=== PATIENT | male | born 1960 | race Caucasian/White ===

== ENCOUNTER → 2016-07-26 | Outpatient (CLI) | payer OTHER ==
--- NOTE | 2016-07-27 08:30 | KCIC ---
PROCEDURE MRI lumbar spine without contrast. HISTORY Low back pain, bilateral hip pain for 10+ years TECHNIQUE Sagittal and axial T1 and T2 and sagittal STIR images were acquired of the lumbar spine. Contrast: None COMPARISON None FINDINGS Lumbar vertebral body stature is preserved. There is advanced degenerative disc disease at L3-4 and L4-5 and to a lesser degree at L2-3 and L5-S1. There is amorphous edema of the L3-4 and L4-5 endplates likely reactive/degenerative in etiology. AP alignment is adequate. Conus terminates normally at L1. There is mild edema of the left L5 pedicle posteriorly probably reactive/degenerative in etiology. L2-3: There is minimal disc osteophyte complex and bulge. Spinal canal is adequate. There is very minimal narrowing of the anterior, inferior left neural foramina, right neural foramen adequate. L3-4: There is broad posterior disc osteophyte complex with superimposed broad bulge/protrusion. There is mild indentation upon the ventral thecal sac. While near, there is no significant displacement of the descending L3 nerve roots. There is apparently a tiny extrusion extending below the intervertebral disc space in the far right lateral recess, mild narrowing of the far right lateral recess. There is mild buckling of the ligamentum flavum. There is mild right and mild to moderate left neural foramina compromise. Disc osteophyte complex is near the proximal extraforaminal left L3 nerve root although no significant displacement. L4-L5: There is disc osteophyte complex with superimposed broad posterior bulge/protrusion. There is mild left lateral recess stenosis. There is mild buckling of the ligamentum flavum and facet degenerative change. There is moderate to severe left greater than right neural foramina compromise. L5-S1: Spinal canal is adequate. There is negligible disc osteophyte complex such as in the anterior left neural foramen. There is mild narrowing of the left neural foramen, right neural foramen adequate. There is mild facet hypertrophic change greater on the left. IMPRESSION 1. There is advanced degenerative disc disease L3-4 and L4-5, to lesser degree at L2-3 and L5-S1. Amorphous L3-4 and L4-5 endplate edema is likely reactive/degenerative in etiology. 2. There is no significant lumbar spinal stenosis, mild narrowing of the far right lateral recess at L3-4 part by shallow extrusion extending below the intervertebral disc space in the far right lateral recess, mild left lateral recess stenosis at L4-5. 3. There is moderate to severe left greater than right L4-5 neural foramina compromise, lesser degree of narrowing on the left at L3-4. Electronically signed by: Abad Peter MD (Jul 27, 2016 08:29:38)
== END | disposition home or self-care (01) ==
LOC: KCIC MRI 17:40
PROVIDERS: ATTEND Family Medicine
DX: M54.9 Dorsalgia, unspecified (principal)
CPT/HCPCS: 72148

== ENCOUNTER → 2017-02-06 | Outpatient (CLI) | payer OTHER ==
[~2017-02-06] MED LIST: ARIP2TAB3 PO; CITA10TA4 PO; IBUP-1007 PO; LAMO200T PO; MULT1TAB52 PO; OMEG1CAP6 PO; QUET25TA5 PO; VENL150C PO
[2017-02-06 15:54] LABS: BASO % 1 % (0-3); EOS % 2 % (0-3); HEMATOCRIT 42.2 % (39.0-53.0); HEMOGLOBIN 14.3 g/dL (13.0-17.5); LYMPH % 32 % (24-48); MEAN CORPUSCULAR HEMOGLOBIN 28 pg (25-35); MEAN CORPUSCULAR HGB CONC 34 g/dL (31-37); MEAN CORPUSCULAR VOLUME 82 fL (79-100); MONO % 8 % (0-9); NEUT % 58 % (31-73); PLATELET COUNT 200 x10^3/uL (140-400); RED BLOOD COUNT 5.13 x10^6/uL (4.30-5.70); RED CELL DISTRIBUTION WIDTH 13.9 % (11.5-14.5); WHITE BLOOD COUNT 6.2 x10^3/uL (4.0-11.0)
[2017-02-06 16:20] LABS: ALBUMIN 4.1 g/dL (3.4-5.0); ALBUMIN/GLOBULIN RATIO 1.2 (1.0-1.7); CALCIUM 9.2 mg/dL (8.5-10.1); GFR 77.6; POTASSIUM 3.9 mmol/L (3.5-5.1); TOTAL BILIRUBIN 0.3 mg/dL (0.2-1.0); TOTAL PROTEIN 7.5 g/dL (6.4-8.2)
== END | disposition home or self-care (01) ==
LOC: SURGPAT 14:28
PROVIDERS: ATTEND Neurological Surgery
DX: M54.16 Radiculopathy, lumbar region (principal); M48.06 Spinal stenosis, lumbar region
CPT/HCPCS: 36415; 80053; 85025; 87641

== ENCOUNTER → 2017-02-16 | Day surgery (SDC) | payer OTHER ==
[~2017-02-16] VITALS: Ht 177.8 cm; Wt 88.5 kg
[~2017-02-16] MED LIST changes: +0.9 % SODIUM CHLORIDE 50 ML VIAL. IJ ONE; +BACITRACIN 50,000 UNIT in IV NORMAL SALINE 1000ML BAG 1,000 ML IRR ONE; +BUPIVACAINE-EPI 0.25%-1:200000 MPF 30 ML VIAL. ONE; +DESFLURANE > 120 MINUTES IH ONE; +DEXAMETHASONE SOD PHOS 20 MG/5 ML VIAL. ONE; +DOCU-109 PO; +GELATIN SPONGE SIZE 100. ONE; +GLYCOPYRROLATE 1 MG/5 ML VIAL. ONE; +HYDR-2762 PO; +HYDROcodone/APAP 7.5/325MG 1 TAB TABLET PO PRN; +HYDROmorphone 2 MG/ML VIAL IV PRN; +IV RINGERS,LACTATED 1000ML 1,000 ML IV SCH; +KETOROLAC 60 MG/2 ML INJ FOR OR. ONE; +LIDOCAINE 1% PF 2 ML VIAL. ID PRN; +LIDOCAINE 2% PF Vial for OR 5 ML VIAL. ONE; +METH-38 PO; +MIDAZOLAM HCL/PF 2 MG/2 ML VIAL. ONE; +MINERAL OIL/PETROLATUM,WHITE OPHTH OINT 3.5GM TUBE. ONE; +MORPHINE SULFATE 2 MG/ML DISP.SYRIN. IV PRN; +MORPHINE SULFATE 2 MG/ML DISP.SYRIN. ONE; +NEOSTIGMINE 10 MG/10 ML VIAL. ONE; +ONDANSETRON PF 4 MG/2 ML VIAL. ONE; +PHENYLEPHRINE 10 MG/ML VIAL. ONE; +PROCHLORPERAZINE 10 MG/2 ML VIAL. IV PRN; +PROPOFOL 20 ML IV ONE; +PROPOFOL 50 ML IV ONE; +REMIFENTANIL 2 MG VIAL. IV ONE; +ROCURONIUM 100 MG/10 ML VIAL. ONE; +SCOPOLAMINE 1.5MG PATCH. TD ONE; +THROMBIN TOPICAL 20,000 UNIT SPRAY.SYRN KIT TP ONE; +fentaNYL PF VIAL 100 MCG/2 ML VIAL IV PRN; +fentaNYL PF VIAL 100 MCG/2 ML VIAL ONE
--- NOTE | 2017-02-16 07:00 | PREOP HP ---
DATE OF SERVICE: ANTICIPATED DATE OF SURGERY: 02/16/2017. HISTORY OF PRESENT ILLNESS: The patient is a pleasant 56-year-old who is having difficulty with low back pain and pain that radiates to both of his hips and posterolateral thighs. The problem has been present for years and has slowly progressed. He says his pain increases to a 9 or 10/10 with activity. Changing positions or getting up from a seated position markedly increases his pain. He says once he is painful, it is difficult for him to get the pain under control. He takes ibuprofen and Tylenol. He had epidural steroid injections about 2 years ago, which did not significantly help him. PAST MEDICAL HISTORY: Headaches, depression and shingles. PAST SURGICAL HISTORY: Left shoulder surgery in 2001. MEDICATIONS: Ibuprofen, Tylenol, , and lamotrigine. FAMILY HISTORY: Cancer and spine problems. ALLERGIES: No known drug allergies. SOCIAL HISTORY: He is employed in [employer]. He quit smoking more than 5 years ago. He does not drink alcohol, but in the past, had a history of alcoholism. REVIEW OF SYSTEMS: A 12-point review of systems was performed and is noncontributory, except that mentioned above. PHYSICAL EXAMINATION: GENERAL: Alert, pleasant, in no acute distress. HEAD: Normocephalic, atraumatic. SKIN: Warm and dry. MUSCULOSKELETAL: Lumbar paraspinal muscle bulk is normal. Restricted range of motion of the lumbar spine. [id number] tenderness of the lower lumbar spine with palpation. Normal range of motion of the lower extremities bilaterally. EXTREMITIES: No clubbing, cyanosis or edema. NEUROLOGIC: Alert and oriented x 3. Strength is 5/5 in the lower extremities bilaterally. Sensory is intact to light touch in the lower extremities bilaterally. Reflexes are present and symmetric in the lower extremities. Negative straight leg raising bilaterally. Normal gait. IMAGING DATA: I reviewed imaging studies of the lumbar spine and at L4-L5, there is significant lateral recess and neural foraminal narrowing bilaterally. ASSESSMENT AND PLAN: At this point, I told him I was willing to operate at L4-L5 and perform bilateral microdecompression surgery to see if this would help him. I discussed with him the surgery including the risk and the expected postoperative course. He understands. He would like to go ahead. We are going to make the arrangements. ROSSY ROMAN MD DR: Al JOB#: [id number] / [id number]
--- NOTE | 2017-02-16 11:05 | DISCH ---
DISCHARGE INSTRUCTIONS Condition on Discharge Condition on Discharge: Stable Activity After Discharge Activity Instructions for Disc: Activity as tolerated, Avoid exertion Other activity instructions: no driving for a week Bathing Instructions: Shower-keep dressing dry Lifting Instructions after Dis: No heavy lifting Diet after Discharge Additional Diet Restrictions: resume home diet Wound Incision Care Wound/Incision Care: Ice to area for comfort Other wound/incision instructi: ,ay remove dressing in 48 hrs if dry, leave steri strips, no direct water Contacting the DRRose Marie after DC Call your doctor for: Concerns you may have Follow-Up Follow up with: Dr. Roman's nurse in 2 weeks [phone] ROSSY ROMAN MD Feb 16, 2017 11:05
--- NOTE | 2017-02-16 11:22 | OP ---
DATE OF SURGERY: 02/16/2017 PREOPERATIVE DIAGNOSIS: Lateral recess stenosis with lumbar radiculopathy, L4-L5 bilateral. POSTOPERATIVE DIAGNOSIS: Lateral recess stenosis with lumbar radiculopathy, L4-L5 bilateral. OPERATION PERFORMED: Bilateral hemilaminotomies with decompression of dura and nerve root, L4-L5. The operation was done with EMG monitoring, fluoroscopy, microscopic dissection. SURGEON: Giancarlo Roman M.D. DIRECTOR HOSPICE OPERATIONS: ROXANA Oliva, assisted with the surgery, assisted with exposure, the micro decompression as well as the closure. OPERATIVE INDICATIONS: The patient is a very pleasant 56-year-old who developed intractable back and bilateral leg pain in a radicular fashion. On imaging studies, he was found to have lateral recess stenosis, which was significant at L4-L5 bilaterally, and after failing conservative measures I recommended lumbar microsurgery. He understood the surgery very well and wished to go ahead. DESCRIPTION OF PROCEDURE: Following general endotracheal anesthesia, the patient was positioned prone on the Allan table. His lumbar region was prepped and draped in a standard fashion. SOMMER hose and A-V Impulse boots were applied for deep venous thrombosis prophylaxis. The microscope was draped. Fluoroscopy was draped and brought into the field. Monitoring was established. Ancef 2 grams was given less than 1 hour prior to initiation of surgery. Using fluoroscopic guidance, incision was made directly over the L4-L5 interspace. I reflected the paraspinal muscles on the left side, placed a [place] micro disc retractor, brought in the microscope and performed a generous hemilaminotomy and partial foraminotomy. The ligamentum flavum was very thickened and indenting into the nerve root and I gently retracted the root medially and then trimmed laterally and enlarged the foraminotomy. As I worked, the region became very well decompressed and the nerve root became very free. The disc was bulging, but extremely firm and I did not feel a discectomy was warranted. I did coagulate a few epidural veins. I then irrigated and obtained hemostasis in the muscle after removing the retractor and then I switched to the contralateral side. In a similar fashion I created an exposure, placed a [place] micro disc retractor, brought in the microscope and with microscopic technique I burred down a generous hemilaminotomy. Ligamentum flavum was again thickened with compression of the root at its takeoff into the neural foramen, and I removed all of this pressure very gently by first fraying up the ligamentum flavum from above and pulling it down and trimming this from medial to lateral with the 2.5 mm and 4 mm [place]. As I worked, the region became very well decompressed. Again, I palpated the disc, which again was bulging slightly, but very firm and I did not feel a discectomy was warranted. I did irrigate. I did coagulate a few epidural veins. I then explored carefully and assured myself that the region was very free. I irrigated copiously, obtained hemostasis in the muscle after removing the retractor, and then I closed the wound in layers with absorbable suture and skin was closed with a 4-0 subcuticular stitch. The surgery went very well and the patient was taken to recovery in excellent condition. I was quite pleased with the surgery. GIANCARLO ROMAN MD DR: LEEANNA/lilia JOB#: [id number] / [id number] ENRICO
[2017-02-16] MEDS: fentaNYL PF VIAL 100 MCG/2 ML VIAL IV PRN ×2 (11:33→11:42)
[2017-02-16 11:57] VITALS: BP 118/63
--- NOTE | 2017-02-17 14:50 | PATHOLOGY ---
PATHOLOGY REPORT * * * * * * * * FINAL DIAGNOSIS: Segments of fibrocartilaginous, fibroadipose, and skeletal muscle tissue and bone, lumbar decompression: - Degenerative changes of fibrocartilaginous tissue. COMMENT: There is no evidence of an acute inflammatory process or malignancy. (JPM:mgr; 02/17/2017) REPORT ELECTRONICALLY SIGNED BY: Arturo Hart M.D. DATE/TIME: 02/17/2017 14:49 * * * * * * * * GROSS PATHOLOGY: Received in formalin labeled "Pete Hodges, lumbar decompression" are multiple segments of [place], rubbery, and gritty tissue admixed with bone. The specimen measures 2.8 x 2.5 x 0.8 cm in aggregate dimensions. The tissue is submitted representatively in cassette A1, following decalcification. (JPM; 02/16/17) INITIAL CPT CODE(S): A; 53046, 68661 Professional services performed [place] [facility] [address] Technical services performed by [facility] at [address] [place] [address]. SPECIMEN(S) RECEIVED: A.Lumbar decompression CLINICAL HISTORY: Lumbar radiculopathy, stenosis PATIENT: PETE HODGES /AGE: 106/08/1960 (Age: 56) PATIENT #: [id number] ALT CASE #: SPECIMEN COLLECTION DATE: 02/16/2017 SPECIMEN RECEIVED DATE: 02/16/2017 [facility] - [address] [place] [address] - PHONE: [phone] * * * END OF REPORT * * *
== END | disposition home or self-care (01) ==
LOC: SURG 07:05
PROVIDERS: ATTEND Neurological Surgery
DX: M54.16 Radiculopathy, lumbar region (principal); M48.06 Spinal stenosis, lumbar region; F17.200 Nicotine dependence, unspecified, uncomplicated; Z86.69 Personal history of other diseases of the nervous system and sense organs; Z87.39 Personal history of other diseases of the musculoskeletal system and connective tissue
CPT/HCPCS: 63047; 76000; 88304; 88311; 97161; J0690; J1100; J1885; J2250; J2405; J2704; J2710; J3010; J3490; J7030; J7120; J2270; J2001